=== PATIENT | female | born 1955 | race Caucasian/White ===

== ENCOUNTER 2018-10-23 19:59 | Emergency (ER) | payer MEDICARE, OTHER ==
[~2018-10-23] VITALS: Ht 170.2 cm; Wt 128.8 kg
[2018-10-23] MEDS ORDERED: hydrALAZINE HCL 10 MG TABLET PO ONE (20:30)
[2018-10-23] MEDS ORDERED: ACETAMINOPHEN 325 MG TABLET PO ONE ×2 (20:30→23:00)
--- NOTE | 2018-10-23 20:30 | NUR ---
BIBDAUGHTER C/O FLANK PAIN, FEVER, CHILLS X2 DAYS. DENIES SOB, CHEST PAIN, ABDOMINAL PAIN. PT AAOX4. RESPIRATIONS EVEN AND UNLABORED. NOTED HYPERTENSION, AWARE. PT APPEARS UNCOMFORTABLE, WILL CONTINUE TO MONITOR
[2018-10-23] MEDS ORDERED: ACETAMINOPHEN 325 MG TABLET ONE ×2 (20:43→22:54)
--- NOTE | 2018-10-23 20:45 | NUR ---
FLU SWAB AND URINE COLLECTED. CALLED LAB FOR [employer]
[2018-10-23] MEDS ORDERED: hydrALAZINE HCL 10 MG TABLET ONE (21:19)
[2018-10-23] MEDS ORDERED: MAG HYDROX/AL HYDROX/SIMETH 30 ML UDC ONE (21:21)
[2018-10-23] MEDS ORDERED: ONDANSETRON 4 MG TAB.RAPDIS ONE (21:21)
[2018-10-23] MEDS ORDERED: MAG HYDROX/AL HYDROX/SIMETH 30 ML UDC PO ONE ×2 (21:30→23:00)
[2018-10-23] MEDS ORDERED: ONDANSETRON HCL 4 MG/5 ML SOLUTION PO ONE (21:30)
[2018-10-23 21:52] LABS: APPEARANCE,URINE CLOUDY (CLEAR); BILIRUBIN,URINE NEGATIVE (NEGATIVE); BLOOD, URINE 3+ Ery/uL (NEGATIVE); COLOR,URINE YELLOW (YELLOW); KETONES,URINE NEGATIVE (NEGATIVE); LEUKOCYTE ESTERASE ,URINE 1+ (NEGATIVE); NITRITE, URINE POSITIVE (NEGATIVE); PROTEIN,URINE 2+ mg/dl (NEGATIVE); UGLUCOSE 3+ mg/dL (NEGATIVE)
[2018-10-23 22:10] LABS: BACTERIA,URINE 4+ /HPF (None Seen); SQUAMOUS EPITHELIAL CELL,UR 0-2 /HPF (None Seen); WBC,URINE 21-50 /HPF (0-3)
[2018-10-23] MEDS ORDERED: PHENAZOPYRIDINE HCL 200 MG TABLET ONE (22:24)
[2018-10-23] MEDS ORDERED: CEFTRIAXONE 1GM BAG (ER ONLY) 1 GM/50 ML PIGGYBACK IV ONE (22:30)
[2018-10-23] MEDS ORDERED: CEFUROXIME AXETIL 250 MG TABLET PO SCH (22:30)
[2018-10-23] MEDS ORDERED: PHENAZOPYRIDINE HCL 200 MG TABLET PO ONE (22:30)
[2018-10-23] MEDS ORDERED: CEFTRIAXONE 1GM BAG (ER ONLY) 50 ML IV ONE (22:51)
[2018-10-23] MEDS ORDERED: ONDANSETRON HCL/PF 4 MG/2 ML VIAL ONE (22:52)
--- NOTE | 2018-10-23 22:56 | NUR ---
BROUGHT BY RADIOLOGY FOR CT
[2018-10-23] MEDS ORDERED: IV NS 0.9% 500 ML IV ONE (23:00)
[2018-10-23] MEDS ORDERED: ONDANSETRON HCL/PF - ER 4 MG/2 ML VIAL IV ONE (23:00)
--- NOTE | 2018-10-24 00:19 | NUR ---
Patient discharged to home in stable condition. Written and verbal after care instructions given. Patient verbalizes understanding of instruction. IV removed. Catheter intact and site benign. Pressure and 4x4 applied to site. No bleeding noted.Pt ambulatory with a steady gait
[2018-10-24 00:21] VITALS: BP 145/87
== END 2018-10-24 00:22 | disposition home or self-care (01) ==
LOC: ER 20:05
DX: N39.0 Urinary tract infection, site not specified (principal); R31.9 Hematuria, unspecified; J42 Unspecified chronic bronchitis; I10 Essential (primary) hypertension; E11.9 Type 2 diabetes mellitus without complications; Z98.890 Other specified postprocedural states
CPT/HCPCS: 71046; 74176; 81001; 87077; 87086; 87186; 87804 ×2; 93005; 96365; 99284; J0696; J2405 ×2; J7030 ×2; J7040; Q0162; 81000-TC; 87400